=== PATIENT | female | born 2000 | race American Indian/Alaskan Native ===

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

== ENCOUNTER 2020-05-10 15:56 | Outpatient (CLI) | payer OTHER ==
[2020-05-10] MEDS ORDERED: LACTATED RINGERS 500 ML IV ONE (16:30)
[2020-05-10 17:07] LABS: Basophils % (Auto) 0.3 % (0.0-1.8); Eosinophils % (Auto) 0.5 % (0.0-4.3); Hematocrit 33.1 % (30.3-42.9); Hemoglobin 10.6 gm/dl (10.1-14.3); Lymphocytes # (Auto) 1.8 K/mm3 (1.2-5.4); Lymphocytes % (Auto) 25.1 % (13.4-35.0); Mean Corpuscular HGB Conc 32 % (30-34); Mean Corpuscular Volume 79 fl (79-97); Monocytes # (Auto) 0.7 K/mm3 (0.0-0.8); Monocytes % (Auto) 9.6 % (0.0-7.3); Platelet Count 285 K/mm3 (140-440); Red Blood Count 4.19 M/mm3 (3.65-5.03); Red Cell Distribution Width 17.2 % (13.2-15.2)
[2020-05-10 17:30] LABS: Alanine Aminotransferase 11 units/L (7-56); Albumin 3.5 g/dL (3.9-5); Blood Urea Nitrogen 4 mg/dL (7-17); Calcium 9.2 mg/dL (8.4-10.2); Hemolysis Index 9; Uric Acid 2.4 mg/dL (3.5-7.6)
[2020-05-10 17:32] LABS: Bilirubin,Urine NEG (Negative); Blood,Urine NEG (Negative); Color,Urine Yellow (Yellow); Protein,Urine <15 mg/dL mg/dL (Negative); Urobilinogen,Urine < 2.0 mg/dL (<2.0)
[2020-05-10 17:35] LABS: BUN/Creatinine Ratio 10
[2020-05-10 18:56] VITALS: BP 126/80
== END 2020-05-10 18:05 | disposition home or self-care (01) ==
LOC: TRG 15:56 → APU 15:57 → TRG 18:05
PROVIDERS: ATTEND Obstetrics & Gynecology
DX: Z34.93 Encounter for supervision of normal pregnancy, unspecified, third trimester (principal); Z3A.39 39 weeks gestation of pregnancy
CPT/HCPCS: 36415; 59025; 80053; 81001; 84550; 85025

== ENCOUNTER 2020-05-15 20:40 | Outpatient (CLI) | payer OTHER ==
[2020-05-15 22:11] LABS: Hematocrit 32.3 % (30.3-42.9); Hemoglobin 10.7 gm/dl (10.1-14.3); Mean Corpuscular HGB Conc 33 % (30-34); Mean Corpuscular Volume 79 fl (79-97); Platelet Count 267 K/mm3 (140-440); Red Blood Count 4.11 M/mm3 (3.65-5.03); Red Cell Distribution Width 17.4 % (13.2-15.2)
[2020-05-15 22:18] LABS: Bacteria,Urine 2+ /HPF (Negative); Bilirubin,Urine NEG (Negative); Blood,Urine NEG (Negative); Color,Urine Yellow (Yellow); Mucus,Urine FEW /HPF; RBC,Urine > 182.0 /HPF (0.0-6.0); Urobilinogen,Urine < 2.0 mg/dL (<2.0); WBC,Urine > 182.0 /HPF (0.0-6.0)
[2020-05-15 22:20] VITALS: BP 113/55
[2020-05-15 22:26] LABS: Alanine Aminotransferase 9 units/L (7-56)
== END 2020-05-15 22:45 | disposition home or self-care (01) ==
LOC: TRG 20:40 → APU 20:40 → TRG 22:45
PROVIDERS: ATTEND Obstetrics & Gynecology
DX: O42.92 Full-term premature rupture of membranes, unspecified as to length of time between rupture and onset of labor (principal); O13.3 Gestational [pregnancy-induced] hypertension without significant proteinuria, third trimester; Z3A.40 40 weeks gestation of pregnancy
CPT/HCPCS: 36415; 59025; 81001; 82565; 83615; 84112; 84450; 84460; 84550; 85027

== ENCOUNTER 2021-04-07 23:58 | Emergency (ER) | payer OTHER ==
[2021-04-08 03:20] LABS: HCG Qualitative,Urine Negative (Negative)
[2021-04-08 03:21] LABS: Bacteria,Urine 1+ /HPF (Negative); Bilirubin,Urine NEG (Negative); Blood,Urine NEG (Negative); Color,Urine Yellow (Yellow); Mucus,Urine FEW /HPF; Protein,Urine <15 mg/dL mg/dL (Negative); Urobilinogen,Urine < 2.0 mg/dL (<2.0)
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
[2021-04-08 05:40] VITALS: BP 125/80
== END 2021-04-08 04:00 ==
LOC: ED 23:58
DX: T76.21XA Adult sexual abuse, suspected, initial encounter (principal); F17.200 Nicotine dependence, unspecified, uncomplicated; Z88.0 Allergy status to penicillin
CPT/HCPCS: 81001; 81025; 87591; 99283

== ENCOUNTER 2021-09-05 02:32 | Emergency (ER) | payer OTHER ==
[2021-09-05] MEDS ORDERED: SODIUM CHLORIDE 0.9% 1000 ML 1,000 ML IV ONE (07:49)
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
[2021-09-05 08:26] LABS: Basophils % (Auto) 0.6 % (0.0-1.8); Eosinophils % (Auto) 0.3 % (0.0-4.3); Hematocrit 36.4 % (30.3-42.9); Hemoglobin 11.8 gm/dl (10.1-14.3); Lymphocytes # (Auto) 2.2 K/mm3 (1.2-5.4); Lymphocytes % (Auto) 45.5 % (13.4-35.0); Mean Corpuscular HGB Conc 33 % (30-34); Mean Corpuscular Volume 78 fl (79-97); Monocytes # (Auto) 0.4 K/mm3 (0.0-0.8); Monocytes % (Auto) 7.9 % (0.0-7.3); Platelet Count 314 K/mm3 (140-440); Red Blood Count 4.69 M/mm3 (3.65-5.03); Red Cell Distribution Width 16.7 % (13.2-15.2)
[2021-09-05 08:41] LABS: INR 0.96 (0.87-1.13)
[2021-09-05 08:50] LABS: Alanine Aminotransferase 7 units/L (7-56); Albumin 3.9 g/dL (3.9-5); Blood Urea Nitrogen 6 mg/dL (7-17); Calcium 9.6 mg/dL (8.4-10.2); Hemolysis Index 1
[2021-09-05 08:55] LABS: BUN/Creatinine Ratio 9
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
[2021-09-05] MEDS ORDERED: FLUoxetine 10 MG TAB PO SCH (12:00)
[2021-09-05 13:42] LABS: Amphetamine Screen,Urine Negative; Benzodiazepines Screen,Urine Negative; Cocaine Screen,Urine Negative; Methadone Screen,Urine Negative; Opiate Screen,Urine Negative
[2021-09-05 14:04] LABS: Cannabinoid Screen,Urine Positive
[2021-09-05 14:07] LABS: HCG Qualitative,Urine Negative (Negative)
[2021-09-05 14:43] LABS: Bacteria,Urine 2+ /HPF (Negative)
[2021-09-05 14:57] LABS: Bilirubin,Urine Negative (Negative); Blood,Urine Negative (Negative); Color,Urine Straw (Yellow); Protein,Urine <15 mg/dL mg/dL (Negative)
--- NOTE | 2021-09-05 19:00 | Electrocardiograph Report ---
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
[2021-09-05 20:00] VITALS: BP 120/76
[2021-09-05] MEDS ORDERED: traZODone 50 MG TAB PO SCH (22:00)
== END 2021-09-05 18:45 | disposition still patient (30) ==
LOC: ED 02:32
DX: T65.892A Toxic effect of other specified substances, intentional self-harm, initial encounter (principal); F19.10 Other psychoactive substance abuse, uncomplicated; R45.851 Suicidal ideations; Z20.822 Contact with and (suspected) exposure to COVID-19; F32.9 Major depressive disorder, single episode, unspecified; F17.290 Nicotine dependence, other tobacco product, uncomplicated; Z88.0 Allergy status to penicillin
CPT/HCPCS: 36415; 80053; 80307; 81001; 81025; 84484; 85025; 85610; 87076; 87086; 87186; 93005; 99284; U0003

== ENCOUNTER 2021-10-18 10:58 | Emergency (ER) | payer OTHER ==
[2021-10-18 11:05] VITALS: BP 131/93
[2021-10-18 11:58] LABS: Basophils % (Auto) 0.4 % (0.0-1.8); Eosinophils % (Auto) 0.4 % (0.0-4.3); Hematocrit 36.8 % (30.3-42.9); Hemoglobin 12.4 gm/dl (10.1-14.3); Lymphocytes # (Auto) 1.7 K/mm3 (1.2-5.4); Mean Corpuscular HGB Conc 34 % (30-34); Mean Corpuscular Volume 77 fl (79-97); Monocytes # (Auto) 0.3 K/mm3 (0.0-0.8); Monocytes % (Auto) 6.9 % (0.0-7.3); Platelet Count 233 K/mm3 (140-440); Red Blood Count 4.79 M/mm3 (3.65-5.03); Red Cell Distribution Width 17.3 % (13.2-15.2)
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
[2021-10-18 12:15] LABS: BUN/Creatinine Ratio 9; Blood Urea Nitrogen 6 mg/dL (7-17); Hemolysis Index 10
[2021-10-18 12:42] LABS: Amphetamine Screen,Urine Negative; Benzodiazepines Screen,Urine Negative; Cocaine Screen,Urine Negative; Methadone Screen,Urine Negative; Opiate Screen,Urine Negative
[2021-10-18 12:53] LABS: Cannabinoid Screen,Urine Positive
[2021-10-18] MEDS ORDERED: FLUoxetine 20 MG CAP PO SCH (13:00)
[2021-10-18 13:05] LABS: Mucus,Urine FEW /HPF; WBC,Urine < 1.0 /HPF (0.0-6.0)
[2021-10-18 13:21] LABS: Color,Urine Straw (Yellow); RBC,Urine < 1.0 /HPF (0.0-6.0)
== END 2021-10-18 19:05 ==
LOC: ED 10:58
DX: R45.851 Suicidal ideations (principal); F31.9 Bipolar disorder, unspecified; F17.200 Nicotine dependence, unspecified, uncomplicated; Z88.0 Allergy status to penicillin; Z79.899 Other long term (current) drug therapy
CPT/HCPCS: 36415; 80048; 80307; 80320; 81001; 84703; 85025; 99285; G0480

== ENCOUNTER 2021-11-09 02:45 | Emergency (ER) | payer OTHER ==
--- NOTE | 2021-11-09 06:37 | Emergency Department Report ---
HPI - General Chief Complaint: Medical Clearance PUI?: No Time Seen by Provider: 11/09/21 06:20 - HPI HPI: This patient is a 21-year-old female with history of polysubstance abuse who presents for evaluation status post snorting crack cocaine. Patient states she snorted crack cocaine this evening and "felt foggy." She denies any dizziness lightheadedness chest pain shortness of breath difficulty breathing palpitations to difficulty talking walking or word finding. Patient repeatedly denies any active suicidal or homicidal ideation, no auditory visual hallucinations. She states she did not consume any other drugs within the past few days but has smoked marijuana approximately 1 week ago. Last menstrual cycle was 1 week ago. Pain currently 0 out of 10. ED Past Medical Hx - Past Medical History Previous Medical History?: Yes Hx Hypertension: No Hx Heart Attack/AMI: No Hx Congestive Heart Failure: No Hx Diabetes: No Hx Deep Vein Thrombosis: No Hx Renal Disease: No Hx Sickle Cell Disease: No Hx Seizures: No Hx Psychiatric Treatment: Yes (BIPOLAR, DEPRESSION, DRUG USE) Hx Asthma: No Hx COPD: No Hx HIV: No Additional medical history: bronchitis - Surgical History Past Surgical History?: No - Social History Smoking Status: Current Every Day Smoker Substance Use Type: Alcohol, Cocaine - Medications Home Medications: Home Medications Medication Instructions Recorded Confirmed Last Taken Type Ibuprofen [Motrin 800 MG tab] 800 mg PO Q8HR PRN #60 tablet 05/22/20 Unknown Rx ED Review of Systems ROS: Stated complaint: DRUG USE/FEELING ILL Other details as noted in HPI Comment: All other systems reviewed and negative Physical Exam - Physical Exam Vital Signs: Vital Signs 11/09/21 11/09/21 02:47 03:51 Temperature 98.9 F 97.9 F Pulse Rate 91 H 84 Respiratory 18 18 Rate Blood Pressure 133/76 Blood Pressure 144/96 [Left] O2 Sat by Pulse 96 99 Oximetry General: Gen: pt is well appearing, no acute distress HEENT: Normocephalic atraumatic pupils equally round and reactive to light extraocular muscles intact sclera anicteric Neck: Full range of motion, no midline spinal tenderness palpation, no JVD, no carotid bruits, no nuchal rigidity CVS: S1-S2 regular rate and rhythm with no gallops rubs or murmurs, chest wall nontender Pulmonary: Clear to auscultation bilaterally, no wheezes rales or rhonchi Abdomen: Soft nondistended nontender no guarding or rebound tenderness, no palpable deformities or step-offs, normal active bowel sounds, no hepatosplenomegaly, no pulsatile masses : Deferred Extremities: No cyanosis no clubbing no edema, intact distal peripheral pulses, Integumentary: Skin normal, no petechia no purpura no abscess no lacerations no evidence of trauma no evidence of infection Neuro: Patient is awake alert and oriented to person place time situation, mentating well, cranial nerves II through XII intact, no focal neurodeficits, sensation grossly tact, patient is not responding to any internal stimuli Psych: Calm cooperative, mood affect normal ED Course Vital Signs 11/09/21 11/09/21 02:47 03:51 Temperature 98.9 F 97.9 F Pulse Rate 91 H 84 Respiratory 18 18 Rate Blood Pressure 133/76 Blood Pressure 144/96 [Left] O2 Sat by Pulse 96 99 Oximetry ED Medical Decision Making - Radiology Data Radiology results: report reviewed - Medical Decision Making 21-year-old female with multiple medical comorbidities, polysubstance abuse, brought in for evaluation of "feeling foggy" in the setting of using crack cocaine. Vital signs stable. Patient is well-appearing, hemodynamically stable and neurovascular intact. She denies any active symptoms at the time of reevaluation. She does not appear to be acutely intoxicated, altered, or under the influence of any mood altering substances necessitating further work-up or observation in the ER. Patient again denies any suicidal or homicidal ideation, auditory visual hallucinations. She was hemodynamically stable and neurovas cular intact. No further work-up warranted. Patient counseled concerning the necessity of cessation of using cocaine. She was discharged to home in stable and asymptomatic condition. Critical Care Time: No Critical care attestation.: If time is entered above; I have spent that time in minutes in the direct care of this critically ill patient, excluding procedure time. ED Disposition Clinical Impression: Cocaine abuse Disposition: HOME / SELF CARE / HOMELESS Is pt being admited?: No Does the pt Need Aspirin: No Condition: Stable Referrals: LD GRADY MD [Primary Care Provider] - 3-5 Days
[2021-11-09 06:42] VITALS: BP 132/77
== END 2021-11-09 06:43 | disposition home or self-care (01) ==
LOC: ED 02:45
DX: F14.10 Cocaine abuse, uncomplicated (principal); F31.9 Bipolar disorder, unspecified
CPT/HCPCS: 99283